=== PATIENT | female | born 2005 | race Caucasian/White ===

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

== ENCOUNTER 2025-05-03 14:20 | Emergency (ER) | payer OTHER, MEDICAID, SELFPAY ==
--- OUTSIDE RECORDS SUMMARY | 2025-05-02 23:37 | XMS_ITS | Encounter Summary ---
Author Organization [facility] Address [address] [place] [address] Care Team Providers Care Old Testament Professor Name Role Phone Christine Coello MD Primary Care Provider Reason for Visit * Reason Comments Vomiting 1 episode Fever Nausea Generalized Body Aches Encounter Details Date Type Department Care Team (Late st Contact Info) Description 05/02/2025 11:37 PM CDT - 05/03/2025 1:38 AM T Emergency [facility] Emergency Medicine [address] [place] [address] [address] [place] [id number] Stew Montilla MD [address] [place] [address] [place] [phone] Discharge Disposition: Home or Self Care Social History Tobacco Use Types Packs/Day Years Used Date Smoking Tobacco: Never Smokeless Tobacco: Never Alcohol Use Standard Drinks/Week Comments No 0 (1 standard drink = 0.6 oz pur e alcohol) Comments No Sex and Gender Information Value Date Recorded Sex Assigned at Not on file Legal Sex Female 9:46 AM [employer] Gender Identity Not on file Sexual Orientation Not on file documented as of this encounter Last Filed Vital Signs Vital Sign Reading Time Taken Comments Blood Pressure 96/60 05/03/2025 1:30 AM CDT Pulse 78 05/03/2025 1:30 AM CDT Temperature 38 C (100.4 F) 05/02/2025 11:37 PM CDT Respiratory Rate 18 05/03/2025 1:30 AM CDT Oxygen Saturation 97% 05/03/2025 1:30 AM CDT Inhaled Oxygen Concentration - - Weight 83 kg (183 lb) 05/02/2025 11:37 PM CDT Height 172.7 cm (5' 8 ) 05/02/2025 11:37 PM CDT Body Mass Index 27.83 05/02/2025 11:37 PM CDT documented in this encounter Discharge Instructions * Attachments The following attachments cannot be sent through Care Everywhere. * Viral Infections (Slovak) documented in this encounter Medications at Time of Discharge vits15/iron/folic/ dss ( VIT [id number]-[id number] ORAL) Take by mouth. aspirin (LIZA CHEWABLE) 81 mg Tablet, Chewable Take 81 mg by mouth daily. documented as of this encounter Plan of Treatment Pending Results Name Type Priority Associated Diagnoses Date /Time BLOOD CULTURE Microbiology Stat 12:15 AM CDT BLOOD CULTURE Microbiology Stat 12:28 AM CDT BLOOD CULTURE Microbiology Stat 12:15 AM CDT BLOOD CULTURE Microbiology Stat 12:28 AM CDT Scheduled Orders Name Type Priority Associated Diagnoses Orde r Schedule BLOOD CULTURE Microbiology Routine ONE TIME for 1 Occurrences starting 05/02/2025 until 05/02/2025 BLOOD CULTURE Microbiology Routine ONE TIME for 1 Occurrences starting 05/02/2025 until 05/02/2025 BLOOD CULTURE Microbiology Stat Once for 1 Occurrences starting 05/02/2025 until 05/02/2025 BLOOD CULTURE Microbiology Stat Once for 1 Occurrences starting 05/02/2025 until 05/02/2025 documented as of this encounter Procedures Procedure Name Priority Date/Time Associated Diagnosis Comments XR CHEST PA OR AP 1 VW Stat 12:18 AM CDT COVID-19 ANTIGEN Stat 05/03/2025 12:1 5 AM CDT LACTIC ACID Stat 05/03/2025 12:15 AM CDT CBC WITH DIFFERENTIAL Stat 05/03/2025 12:15 AM CDT URINALYSIS W/REFLEX MICROSCOPIC Stat 05/03/2025 12:15 AM CDT HCG QUALITATIVE, URINE Stat 12:15 AM CDT COMPREHENSIVE METABOLIC PANEL Stat 05/03/2025 12:15 AM CDT documented in this encounter Results * XR CHEST PA OR AP 1 VW (05/03/2025 12:18 AM CDT) Anatomical Region Laterality Modality Chest Computed Radiogr aphy 05/03/2025 12:1 8 AM CDT Impressions 05/03/2025 12:35 AM CDT IMPRESSION: No acute cardiopulmonary abnormality identified. MACRO: None Narrative 05/03/2025 12:35 AM CDT EXAMINATION: XR CHEST PA OR AP 1 VW CLINICAL HISTORY: ASSOCIATED DIAGNOSIS: Fever ORDERING PROVIDER: STEW FITZGERALD NOTE: COMPARISON: None FINDINGS: Lines, tubes, and devices: None. Lungs and pleura: No focal pulmonary consolidation, effusion or pneumothorax. Cardiomediastinal silhouette: Normal cardiomediastinal silhouette. Musculoskeletal: Unremarkable. Procedure Note Stu Hernandes MD - 05/03/2025 EXAMINATION: XR CHEST PA OR AP 1 VW CLINICAL HISTORY: ASSOCIATED DIAGNOSIS: Fever ORDERING PROVIDER: STEW FITZGERALD NOTE: COMPARISON: None FINDINGS: Lines, tubes, and devices: None. Lungs and pleura: No focal pulmonary consolidation, effusion or pneumothorax. Cardiomediastinal silhouette: Normal cardiomediastinal silhouette. Musculoskeletal: Unremarkable. IMPRESSION: No acute cardiopulmonary abnormality identified. MACRO: None Stew Montilla MD DIAGNOSTIC IMAGING ORDER [facility] Final Result * COVID-19 ANTIGEN (05/03/2025 12:15 AM CDT) COVID-19 ANTIGEN Presumptive Negative Presumptive Negative 05/03/2025 2:18 AM CDT [facility] Upper Respiratory ANTERIOR NARES SWAB / Unknown Collection / Unknown 05/03/2025 12:15 AM CDT 05/03/2025 2:15 AM CDT Narrative [facility] - 05/03/2025 2:18 AM CDT Kristy SARS antigen test has been authorized by FDA under an emergency use authorization (EUA) and has been authorized only for the detection of proteins from SARS-CoV-2 and influenza, not for any other viruses or pathogens. Kristy SARS Antigen CHELI is intended for the simultaneous qualitative detection and differentiation of nucleocapsid protein antigen from SARS-CoV-2 directly from nasopharyngeal (INSIDE STEWARD/STEWARDESS) and nasal (NS) swab specimens collected from individuals who are suspected of respiratory viral infection consistent with COVID-19 by their healthcare provider within the first five (5) days of symptom onset when tested at least twice over three days with at least 48 hours between tests, or from individuals without symptoms or other epidemiological reasons to suspect COVID-19 when tested at least three times over five days with at least 48 hours between tests. This test is only authorized for the duration of the declaration that circumstances exist justifying the authorization of emergency use of in vitro diagnostics for detection and/or diagnosis of the virus that causes COVID-19 under Section 564(b)(1) of the Act, 21 U.S.C. 360bbb-3(b)(1), unless the authorization is terminated or revoked sooner. Negative results should be treated as presumptive and confirmed with a molecular assay, if necessary for patient care. Serial testing should be performed in individuals with negative results at least twice over three days (with 48 hours between tests) for symptomatic individuals or from individuals without symptoms or other epidemiological reasons to suspect COVID-19 when tested at least three times over five days with at least 48 hours between tests. us Stew Montilla MD MICROBIOLOGY - GENERAL O RDERABLES Final Result [facility] CLIA # [id number] [address] [place] [id number] * HCG QUALITATIVE, URINE (05/03/2025 12:15 AM CDT) HCG QUAL URINE Negative Negative 05/03/2025 2:18 AM CDT [facility] COLOR UA Yellow Pale to Dark Yellow 05/03/2025 2:18 AM CDT [facility] CLARITY UA Clear Clear 05/03/2025 2:18 AM CDT [facility] Urine URINE SPECIMEN OBTAINED BY CLEAN CATCH PROCEDURE / Unknown Collection / Unknown 05/03/2025 12:15 AM CDT 05/03/2025 2:15 AM CDT us Stew Montilla MD URINE ORDERABLES Final R esult [facility] CLIA # [id number] [address] [place] [address] * URINALYSIS WITH REFLEX MICROSCOPIC (05/03/2025 12:15 AM CDT) COLOR UA Yellow Pale to Dark Yellow 05/03/2025 2:19 AM CDT [facility] CLARITY UA Clear Clear 05/03/2025 2:19 AM T [facility] SPECIFIC GRAVITY UA 1.025 1.003 - 1.035 05/03/2025 2:19 AM T [facility] PH UA 6.0 5.0 - 8.0 05/03/2025 2:19 AM T [facility] LEUKOCYTE ESTERASE UA Negative Negative 05/03/2025 2:19 AM T [facility] NITRITE UA Negative Negative 05/03/2025 2:19 AM T [facility] PROTEIN UA Negative Negative 05/03/2025 2:19 AM T [facility] GLUCOSE UA Negative Negative 05/03/2025 2:19 AM T [facility] KETONES UA Negative Negative 05/03/2025 2:19 AM T [facility] UROBILINOGEN UA 0.2 <2.0 mg/dL 2:19 AM T [facility] BILIRUBIN UA Negative Negative 05/03/2025 2:19 AM T [facility] BLOOD UA Negative Negative 05/03/2025 2:19 AM CDT [facility] Urine URINE SPECIMEN OBTAINED BY CLEAN CATCH PROCEDURE / Unknown Collection / Unknown 05/03/2025 12:15 AM CDT 05/03/2025 2:15 AM CDT Stew Montilla MD URINE ORDERABLES Final R esult [facility] CLIA # [id number] [address] [place] [phone] * LACTIC ACID (05/03/2025 12:15 AM CDT) LACTIC ACID 0.8 <=2.0 mmol/L 05/03/2025 2:18 AM CDT [facility] Blood BLOOD SPECIMEN / Unknown Collection / Unknown 05/03/2025 12:15 AM CDT 05/03/2025 2:15 AM CDT Stew Montilla MD CHEMISTRY ORDERABLES Fin al Result Performing Organization Address City/[facility]/ZIP Co de Phone Number [facility] CLIA # [id number] [address] [place] [phone] * COMPREHENSIVE METABOLIC PANEL (05/03/2025 12:15 AM CDT) SODIUM 139 136 - 145 mmol/L 05/03/2025 2:22 AM CDT [facility] POTASSIUM 3.7 3.5 - 5.1 mmol/L 05/03/2025 2:22 AM T [facility] CHLORIDE 104 98 - 107 mmol/L 05/03/2025 2:22 AM T [facility] CO2 22 22 - 29 mmol/L 05/03/2025 2:22 AM T [facility] CALCIUM 9.3 8.6 - 10.0 mg/dL 05/03/2025 2:22 AM T [facility] BUN 18 6 - 20 mg/dL 05/03/2025 2:22 AM [facility] CREATININE 0.80 0.51 - 0.95 mg/dL 05/03/2025 2:22 AM [facility] GLUCOSE 93 74 - 99 mg/dL 05/03/2025 2:22 AM [facility] TOTAL PROTEIN 7.1 6.6 - 8.7 g/dL 05/03/2025 2:22 AM [facility] ALBUMIN 4.4 3.5 - 5.2 g/dL 05/03/2025 2:22 AM [facility] BILIRUBIN TOTAL 0.2 0.0 - 1.2 mg/dL 05/03/2025 2:22 AM [facility] ALKALINE PHOSPHATASE 100 35 - 104 U/L 05/03/2025 2:22 AM [facility] AST 21 0 - 35 U/L 05/03/2025 2:22 AM [facility] ALT 11 0 - 35 U/L 05/03/2025 2:22 AM [facility] GFR >60 >=60 mL/min/1.7 3 sq meter 05/03/2025 2:22 AM [facility] Comment:eGFR calculated with 2020 CKD-EPI equation. Vegetarian diet, extremely high or low muscle mass, and may affect results. Cystatin C with Glomerular Filtration Rate is a suitable alternative for these patients. ANION GAP 13 5 - 20 mmol/L 05/03/2025 2:22 AM [facility] Blood Collection / Unknown 05/03/2025 12:15 AM CDT 05/03/2025 2:15 AM CDT us Stew Montilla MD CHEMISTRY ORDERABLES Fin al Result [facility] CLIA # [id number] [address] [place] [address] [phone] * (ABNORMAL) CBC WITH DIFFERENTIAL (05/03/2025 12:15 AM CDT) WBC 5.7 4.0 - 10.0 K/uL 05/03/2025 2:17 AM [facility] RBC 4.65 3.93 - 5.22 M/uL 05/03/2025 2:17 AM [facility] HEMOGLOBIN 13.1 11.2 - 15.7 g/dL 05/03/2025 2:17 AM [facility] HEMATOCRIT 38.9 34.1 - 44.9 % 05/03/2025 2:17 AM [facility] MCV 83.7 79.4 - 94.8 fL 05/03/2025 2:17 AM [facility] MCH 28.2 25.6 - 32.2 pg 05/03/2025 2:17 AM [facility] MCHC 33.7 32.2 - 35.5 g/dL 05/03/2025 2:17 AM [facility] RDW 13.4 11.0 - 14.5 % 05/03/2025 2:17 AM [facility] RDW-STDEV 40.2 36.9 - 56.9 fL 05/03/2025 2:17 AM [facility] PLATELETS 188 163 - 337 K/uL 05/03/2025 2:17 AM [facility] MPV 10.6 10.0 - 14.8 fL 05/03/2025 2:17 AM [facility] NEUTROPHILS 78(H) 34 - 71 % 05/03/2025 2:17 AM [facility] LYMPHOCYTES 11(L) 19 - 52 % 05/03/2025 2:17 AM [facility] MONOCYTES 8 5 - 13 % 05/03/2025 2:17 AM [facility] EOSINOPHILS 2 1 - 6 % 05/03/2025 2:17 AM [facility] BASOPHILS 1 0 - 1 % 05/03/2025 2:17 AM [facility] IMMATURE GRANULOCYTES 0 % 05/03/2025 2:17 AM [facility] NEUTROPHIL ABSOLUTE 4.44 1.56 - 6.13 K/uL 05/03/2025 2:17 AM CDT [facility] LYMPHOCYTE ABSOLUTE 0.64(L) 1.20 - 3.40 K/uL 05/03/2025 2:17 AM CDT [facility] MONOCYTE ABSOLUTE 0.45(H) 0.24 - 0.36 K/uL 05/03/2025 2:17 AM CDT [facility] EOSINOPHIL ABSOLUTE 0.09 0.04 - 0.36 K/uL 05/03/2025 2:17 AM CDT [facility] BASOPHILS ABSOLUTE 0.03 0.01 - 0.08 K/uL 05/03/2025 2:17 AM [facility] IMMATURE GRANULOCYTES ABSOLUTE 0.01 K/uL 05/03/2025 2:17 AM [facility] Blood Collection / Unknown 05/03/2025 12:15 AM CDT 05/03/2025 2:15 AM CDT Stew Montilla MD HEMATOLOGY ORDERABLES Fi nal Result [id number] [address] [place] [phone] documented in this encounter Visit Diagnoses Not on filedocumented in this encounter Administered Medications Inactive Administered Medications - up to 3 most recent administrations Medication Order MAR Action Action Date Dose Rate Site acetaminophen (TYLENOL) tablet 1,000 mg 1,000 mg, Oral, ONE TIME ONLY, 1 dose, On Thu05/03/25 at 0000, Routine Given 05/03/2025 12:07 AM CDT 1,000 mg ondansetron (ZOFRAN) 4 mg/2 mL injection 4 mg 4 mg, IV, ONE TIME ONLY, 1 dose, On Thu05/03/25 at 0000, Stat Given 05/03/2025 12:10 AM CDT 4 mg sodium chloride 0.9 % bolus solution 1,000 mL 1,000 mL, IV, ONE TIME ONLY, 1 dose, On Thu05/03/25 at 0000, at 2,000 mL/hr, Administer over 30 Minutes, Routine New Bag 05/03/2025 12:28 AM CDT 1,000 mL 2000 mL/hr documented in this encounter Active and Recently Administered Medications Times are shown in CDT. Scheduled Medication Order 05/01/2025 05/02/2025 05/03/2025 acetaminophen (TYLENOL) tablet 1,000 mg (COMPLETED) 1,000 mg, Oral, ONE TIME ONLY, 1 dose, On Thu05/03/25 at 0000, Routine 0007 (Given - Provid er: Ciera Candelario RN) ondansetron (ZOFRAN) 4 mg/2 mL injection 4 mg (COMPLETED) 4 mg, IV, ONE TIME ONLY, 1 dose, On Thu05/03/25 at 0000, Stat 0010 (Given - Provid er: Ciera Candelario RN) sodium chloride 0.9 % bolus solution 1,000 mL (COMPLETED) 1,000 mL, IV, ONE TIME ONLY, 1 dose, On Thu05/03/25 at 0000, at 2,000 mL/hr, Administer over 30 Minutes, Routine 0028 (New Bag - Prov ider: Ciera Candelario RN)0058 (Stopped - Provider: Ciera Candelario RN) documented in this encounter Additional Health Concerns Infection Onset Date Last Indicated Resolved Time R/O COVID-19 05/02/2025 05/03/2025 05/03/2025 2:18 AM CDT documented as of this encounter Care Teams Old Testament Professor Relationship Specialty Start Date End Date Christine Coello MD [address] [phone] PCP - General Family Practice 01/04/24 documented as of this encounter
--- OUTSIDE RECORDS SUMMARY | 2025-05-03 14:30 | XMS_ITS | Clinical Summary ---
Author Organization [facility] Address [address] [place] [address] Care Team Providers Care Buckram Sewer Name Role Phone Christine Coello MD Primary Care Provider Allergies No known active allergies Medications vits15/iron/foli c/dss ( VIT 54-TUPF-USNSO-DS S ORAL) Take by mouth. Active aspirin (LIZA CHEWABLE) 81 mg Tablet, Chewable Take 81 mg by mouth daily. Active Active Problems Problem Noted Date Diagnosed Date Acute pain of right knee 04/14/2017 Encounters Date Type Department Care Team Description 05/02/2025 11:37 PM CDT - 05/03/2025 1:38 AM T Emergency [facility] Emergency Medicine [address] [place] [id number] Stew Montilla MD Discharge Disposition: Home or Self Care 05/02/2025 Travel from Last 3 Months Immunizations Immunization Administration Dates Next Due (ACTHIB/HIBERIX)(2 MOS-5 YRS /6 WKS-4 YRS) HAEMOPHILUS INFLUENZAE TYPE B VACCINE (HIB), PRP-T CONJUGATE, 4 DOSE, 0.5 ML IM 10/28/2006,02/17/2006,2005 (ADACEL/BOOSTRIX)(10 YR UP) TDAP VACCINE, 0.5ML, IM 05/11/2019 (HAVRIX/VAQTA)(12 MO-18 YRS) HEPATITIS A VACCINE 0.5 ML PED/ADOL 2 DOSE, IM 09/10/2009,03/22/2008 (INFANRIX)(6 WKS-6 YRS) DIPT HERIA, TETANUS TOXOIDS, AND ACCELLULAR PERTUSSIS VACCINE (DTAP), 0.5 ML IM 02/10/2007,04/27/2006,02/18/2006,12/15 (IPOL)(6 WKS AND UP) POLIOVI BOGADN VACCINE, INACTIVATED (IPV), 3 DOSE, SUBCUT OR IM 04/27/2006,02/18/2006,2005 (KINRIX/QUADRACEL)(4 - 6 YRS ) DIPHTHERIA, TETANUS TOXOIDS AND ACELLULAR PERTUSSIS VACCINE, POLIO, INACTIVATED (DTAP-IPV) (PF) IM 07/12/2010 (M-M-R II/PRIORIX)(12 MO UP) MEASLES, MUMPS AND RUBELLA VIRUS VACCINE, 0.5 ML IM/SUBCUT 07/12/2010,10/28/2006 (MENACTRA)(9 MO-55 YR) MENIN GOCOCCAL POLYSACCHARIDE A, C, Y AND W-135 DIPTHERIA TOXOID CONJUGATE VACCINE, (PF), 0.5ML, IM 05/11/2019 (MENQUADFI)(2 YRS UP) MENING OCOCCAL POLYSACCHARIDE VACCINE A,C,Y,W-135, TT CONJUGATE (PF) 10 MCG/0.5 ML IM SOLUTION 08/12/2023 (PEDVAXHIB)(2 - 71 MOS) HIB PRP-OMP VACCINE, 3 DOSE, 0.5 ML IM0] 10/28/2006,02/18/2006,2005 (RECOMBIVAX HB/ENGERIX-B)(0- 19 YRS) HEPATITIS B VACCINE 5 MCG/0.5 ML OR 10 MCG/0.5 ML PED OR ADOL 3 DOSE (PF), IM 04/27/2006,2005,2005 (VARIVAX)(12 MOS UP)VARICELL A VIRUS VACCINE (PF) 0.5 ML, SUB CUT 07/12/2010,10/28/2006 Hepatitis A Vaccine 09/10/2009,03/22/2008 Hepatitis B Vaccine 04/27/2006,2005,2004 Hepatitis B and Haemophilus Influenzae Type B Vaccine (Hib-HepB)IM 02/18/2006 INFLUENZA VACCINE QUADRIVALE NT 6 MOS UP IM 08/11/2014 INFLUENZA VACCINE QUADRIVALE NT 6 MOS UP PF IM 08/18/2019,08/19/2018 Influenza Seasonal Unspecifi ed Formulation IM 08/05/2013,08/30/2008,10/28/2006,09/22 Influenza Seasonal Unspecifi ed Formulation PF IM 08/05/2013 Influenza Virus Vaccine, Spl it Virus (Incl. Purified Surface antigen)-retired CODE 08/30/2008 Pneumococcal 7-valent conjug ate vaccine IM 02/10/2007,04/27/2006,02/18/2006,12/15 Family History Medical History Relation Name Comments No Known Problems Father No Known Problems Mother Relation Name Status Comments Father Alive Mother Alive Social History Tobacco Use Types Packs/Day Years Used Date Smoking Tobacco: Never Smokeless Tobacco: Never Tobacco Cessation:Counseling Given: No Alcohol Use Standard Drinks/Week Comments No 0 (1 standard drink = 0.6 oz pur e alcohol) Comments No Sex and Gender Information Value Date Recorded Sex Assigned at Not on file 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 Gender Identity Not on file Sexual Orientation Not on file Last Filed Vital Signs Vital Sign Reading [...] Mass Index 27.83 05/02/2025 11:37 PM CDT Plan of Treatment Health Maintenance Due Date Last Done Comments CHLAMYDIA SCREENING (ANNUAL) 11-24 YEARS 2016 HPV VACCINES (1 - 3-dose series) 2020 Preventative Visit-Managed Medicaid 2024 08/12/2023, 06/16/2022, 05/11/2019 INFLUENZA VACCINE (#1) 2025 9, 08/19/2018, 08/11/2014, Additional history exists DTAP/TDAP/TD VACCINES (7 - T d or Tdap) 05/11/2029 05/11/2019, 07/12/2010, 02/10/2007, Additional history exists HEPATITIS B VACCINES Completed 04/27/2006, 04/27/2006, 02/18/2006, Additional history exists Procedures Procedure Name Priority Date/Time Associated Diagnosis Comments XR CHEST PA OR AP 1 VW Stat 12:18 AM CDT COVID-19 ANTIGEN Stat 05/03/2025 12:1 5 AM CDT HCG QUALITATIVE, URINE Stat 12:15 AM CDT URINALYSIS W/REFLEX MICROSCOPIC Stat 05/03/2025 12:15 AM CDT LACTIC ACID Stat 05/03/2025 12:15 AM CDT COMPREHENSIVE METABOLIC PANEL Stat 05/03/2025 12:15 AM CDT CBC WITH DIFFERENTIAL Stat 05/03/2025 12:15 AM CDT from Last 3 Months Results * XR CHEST PA OR AP 1 VW (05/03/2025 12:18 AM CDT) Anatomical Region Laterality Modality Chest Computed Radiogr aphy 05/03/2025 12:1 8 AM CDT Impressions 05/03/2025 12:35 AM CDT IMPRESSION: No acute cardiopulmonary abnormality identified. MACRO: None Narrative 05/03/2025 12:35 AM CDT EXAMINATION: XR CHEST PA OR AP 1 VW CLINICAL HISTORY: ASSOCIATED DIAGNOSIS: Fever ORDERING PROVIDER: STEW MONTILLA TECHNOLOGISTS NOTE: COMPARISON: None FINDINGS: Lines, tubes, and devices: None. Lungs and pleura: No focal pulmonary consolidation, effusion or pneumothorax. Cardiomediastinal silhouette: Normal cardiomediastinal silhouette. Musculoskeletal: Unremarkable. Procedure Note Stu Hernandes MD - 05/03/2025 EXAMINATION: XR CHEST PA OR AP 1 VW CLINICAL HISTORY: ASSOCIATED DIAGNOSIS: Fever ORDERING PROVIDER: STEW MONTILLA TECHNOLOGISTS NOTE: COMPARISON: None FINDINGS: Lines, tubes, and devices: None. Lungs and pleura: No focal pulmonary consolidation, effusion or pneumothorax. Cardiomediastinal silhouette: Normal cardiomediastinal silhouette. Musculoskeletal: Unremarkable. IMPRESSION: No acute cardiopulmonary abnormality identified. MACRO: None us Stew Montilla MD DIAGNOSTIC IMAGING ORDER [facility] Final Result * COVID-19 ANTIGEN (05/03/2025 12:15 AM CDT) [facility] COVID-19 ANTIGEN Presumptive Negative Presumptive Negative 05/03/2025 2:18 AM CDT [facility] Upper Respiratory ANTERIOR NARES SWAB / Unknown Collection / Unknown 05/03/2025 12:15 AM CDT 05/03/2025 2:15 AM CDT [facility] - 05/03/2025 2:18 AM CDT Kristy SARS antigen test has been authorized by FDA under an emergency use authorization (EUA) and has been authorized only for the detection of proteins from SARS-CoV-2 and influenza, not for any other viruses or pathogens. Kristy SARS Antigen CHELI is intended for the simultaneous qualitative detection and differentiation of nucleocapsid protein antigen from SARS-CoV-2 directly from nasopharyngeal (PROCED TECH) and nasal (NS) swab specimens collected from [...] with at least 48 hours between tests. Stew Montilla MD MICROBIOLOGY - GENERAL O RDERABLES Final Result Performing Organization Address [facility]/ZIP Co de Phone Number [facility] [id number] [address] [place] [phone] * LACTIC ACID (05/03/2025 12:15 AM CDT) LACTIC ACID 0.8 <=2.0 mmol/L 05/03/2025 2:18 AM CDT [facility] Blood BLOOD SPECIMEN / Unknown Collection / Unknown 05/03/2025 12:15 AM CDT 05/03/2025 2:15 AM CDT tSew Montilla MD CHEMISTRY ORDERABLES Fin al Result Performing Organization Address [facility]/ZIP Co de Phone Number [facility] CLIA # [id number] [address] [place] [phone] * (ABNORMAL) CBC WITH DIFFERENTIAL (05/03/2025 12:15 AM CDT) WBC 5.7 4.0 - 10.0 K/uL 05/03/2025 2:17 AM CDT [facility] RBC 4.65 3.93 - 5.22 M/uL 05/03/2025 2:17 AM CDT [facility] HEMOGLOBIN 13.1 11.2 - 15.7 g/dL 05/03/2025 2:17 AM [facility] HEMATOCRIT 38.9 34.1 - 44.9 % 05/03/2025 2:17 AM [facility] MCV 83.7 79.4 - 94.8 fL 05/03/2025 2:17 AM [facility] MCH 28.2 25.6 - 32.2 pg 05/03/2025 2:17 AM [facility] MCHC 33.7 32.2 - 35.5 g/dL 05/03/2025 2:17 AM [facility] RDW 13.4 11.0 - 14.5 % 05/03/2025 2:17 AM [facility] RDW-STDEV 40.2 36.9 - 56.9 fL 05/03/2025 2:17 AM [facility] PLATELETS 188 163 - 337 K/uL 05/03/2025 2:17 AM [facility] MPV 10.6 10.0 - 14.8 fL 05/03/2025 2:17 AM [facility] NEUTROPHILS 78(H) 34 - 71 % 05/03/2025 2:17 AM [facility] LYMPHOCYTES 11(L) 19 - 52 % 05/03/2025 2:17 AM [facility] MONOCYTES 8 5 - 13 % 05/03/2025 2:17 AM [facility] EOSINOPHILS 2 1 - 6 % 05/03/2025 2:17 AM [facility] BASOPHILS 1 0 - 1 % 05/03/2025 2:17 AM [facility] IMMATURE GRANULOCYTES 0 % 05/03/2025 2:17 AM [facility] NEUTROPHIL ABSOLUTE 4.44 1.56 - 6.13 K/uL 05/03/2025 2:17 AM [facility] LYMPHOCYTE ABSOLUTE 0.64(L) 1.20 - 3.40 K/uL 05/03/2025 2:17 AM [facility] MONOCYTE ABSOLUTE 0.45(H) 0.24 - 0.36 K/uL 05/03/2025 2:17 AM CDT [facility] EOSINOPHIL ABSOLUTE 0.09 0.04 - 0.36 K/uL 05/03/2025 2:17 AM CDT [facility] BASOPHILS ABSOLUTE 0.03 0.01 - 0.08 K/uL 05/03/2025 2:17 AM T [facility] IMMATURE GRANULOCYTES ABSOLUTE 0.01 K/uL 05/03/2025 2:17 AM T [facility] Blood Collection / Unknown 05/03/2025 12:15 AM CDT 05/03/2025 2:15 AM CDT us Stew Montilla MD HEMATOLOGY ORDERABLES Fi nal Result [facility] CLIA # [id number] [address] [place] [phone] * URINALYSIS WITH REFLEX MICROSCOPIC (05/03/2025 12:15 AM CDT) COLOR UA Yellow Pale to Dark Yellow 05/03/2025 2:19 AM [facility] CLARITY UA Clear Clear 05/03/2025 2:19 AM [facility] SPECIFIC GRAVITY UA 1.025 1.003 - 1.035 05/03/2025 2:19 AM [facility] PH UA 6.0 5.0 - 8.0 05/03/2025 2:19 AM [facility] LEUKOCYTE ESTERASE UA Negative Negative 05/03/2025 2:19 AM T [facility] NITRITE UA Negative Negative 05/03/2025 2:19 AM [facility] PROTEIN UA Negative Negative 05/03/2025 2:19 AM [facility] GLUCOSE UA Negative Negative 05/03/2025 2:19 AM [facility] KETONES UA Negative Negative 05/03/2025 2:19 AM [facility] UROBILINOGEN UA 0.2 <2.0 mg/dL 2:19 AM [facility] BILIRUBIN UA Negative Negative 05/03/2025 2:19 AM CDT [facility] BLOOD UA Negative Negative 05/03/2025 2:19 AM CDT [facility] Urine URINE SPECIMEN OBTAINED BY CLEAN CATCH PROCEDURE / Unknown Collection / Unknown 05/03/2025 12:15 AM CDT 05/03/2025 2:15 AM CDT Stew Montilla MD URINE ORDERABLES Final R esult Performing Organization Address City/[facility] Co de Phone Number [facility] CLIA # [id number] [address] [place] [phone] * HCG QUALITATIVE, URINE (05/03/2025 12:15 AM CDT) HCG QUAL URINE Negative Negative 05/03/2025 2:18 AM CDT [facility] COLOR UA Yellow Pale to Dark Yellow 05/03/2025 2:18 AM CDT [facility] CLARITY UA Clear Clear 05/03/2025 2:18 AM CDT [facility] Urine URINE SPECIMEN OBTAINED BY CLEAN CATCH PROCEDURE / Unknown Collection / Unknown 05/03/2025 12:15 AM CDT 05/03/2025 2:15 AM CDT Stew Montilla MD URINE ORDERABLES Final R esult Performing Organization Address City/[facility]/ZIP Co de Phone Number [facility] CLIA # [id number] [address] [place] [phone] * COMPREHENSIVE METABOLIC PANEL (05/03/2025 12:15 AM CDT) SODIUM 139 136 - 145 mmol/L 05/03/2025 2:22 AM CDT [facility] POTASSIUM 3.7 3.5 - 5.1 mmol/L 05/03/2025 2:22 AM CDT [facility] CHLORIDE 104 98 - 107 mmol/L 05/03/2025 [facility] 22 22 - 29 mmol/L 05/03/2025 2:22 AM [facility] CALCIUM 9.3 8.6 - 10.0 mg/dL 05/03/2025 2:22 AM [facility] BUN 18 6 - 20 mg/dL 05/03/2025 2:22 AM [facility] CREATININE 0.80 0.51 - 0.95 mg/dL 05/03/2025 2:22 AM [facility] GLUCOSE 93 74 - 99 mg/dL 05/03/2025 2:22 AM [facility] TOTAL PROTEIN 7.1 6.6 - 8.7 g/dL 05/03/2025 2:22 AM [facility] ALBUMIN 4.4 3.5 - 5.2 g/dL 05/03/2025 2:22 AM [facility] BILIRUBIN TOTAL 0.2 0.0 - 1.2 mg/dL 05/03/2025 2:22 AM [facility] ALKALINE PHOSPHATASE 100 35 - 104 U/L 05/03/2025 2:22 AM [facility] AST 21 0 - 35 U/L 05/03/2025 2:22 AM [facility] ALT 11 0 - 35 U/L 05/03/2025 2:22 AM [facility] GFR >60 >=60 mL/min/1.7 3 sq meter 05/03/2025 2:22 AM [facility] Comment:eGFR calculated with 2020 CKD-EPI equation. Vegetarian diet, extremely high or low muscle mass, and may affect results. Cystatin C with Glomerular Filtration Rate is a suitable alternative for these patients. ANION GAP 13 5 - 20 mmol/L 05/03/2025 2:22 AM [facility] Blood Collection / Unknown 05/03/2025 12:15 AM CDT 05/03/2025 2:15 AM CDT us Stew Montilla MD CHEMISTRY ORDERABLES Fin al Result [facility] CLIA # [id number] [address] [address] from Last 3 Months Insurance [employer] [place] MEDICAID [facility] Care Teams Buckram Sewer Relationship Specialty Start Date End Date Christine Coello MD [address] [address] PCP - General Family Practice 01/04/24
--- OUTSIDE RECORDS SUMMARY | 2025-05-03 14:30 | XMS_ITS | Encounter Summary ---
Author Organization [facility] Address [address] [place]: Epic Prelude ADT [place] [address] Care Team Providers Care Camp Guard Name Role Phone Christine Coello MD Primary Care Provider Encounter Details Date Type Department Care Team (Latest Contact Info) Description 05/02/2025 Travel Social History Tobacco Use Types Packs/Day Years Used Date Smoking Tobacco: Never Smokeless Tobacco: Never Alcohol Use Standard Drinks/Week Comments No 0 (1 standard drink = 0.6 oz pur e alcohol) Comments No Sex and Gender Information Value Date Recorded Sex Assigned at Not on file Legal Sex Female 9:[address]PORTER Gender Identity Not on file Sexual Orientation Not on file documented as of this encounter Plan of Treatment Not on file documented as of this encounter Visit Diagnoses Not on filedocumented in this encounter Additional Health Concerns Infection Onset Date Last Indicated Resolved Time R/O COVID-19 05/02/2025 05/03/2025 05/03/2025 2:18 AM CDT documented as of this encounter Care Teams Camp Guard Relationship Specialty Start Date End Date Christine Coello MD [address] [place] [id number] PCP - General Family Practice 01/04/24 documented as of this encounter
--- OUTSIDE RECORDS SUMMARY | 2025-05-03 14:30 | XMS_ITS | Encounter Summary ---
Author Organization [facility] Address [address] [place] [address] Care Team Providers Care Bond Trader Name Role Phone Juan Miguel Samuel MD Primary Care Provider Encounter Details Date Type Department Care Team (Latest Contact Info) Description 04/16/2006 Outpatient Historical [facility] [address] [address] Rosa Roman NP NO ADDRESS ON FILE Unspecified Otitis Media (Primary Dx); Teething Syndrome Social History Tobacco Use Types Packs/Day Years Used Date Smoking Tobacco: Never Assessed Comments Unknown Sex and Gender Information Value Date Recorded Sex Assigned at Not on file 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
--- OUTSIDE RECORDS SUMMARY | 2025-05-03 14:30 | XMS_ITS | Clinical Summary ---
Author Organization [facility] Address [address] [place] [address] Care Team Providers Care Binder Cutter Name Role Phone Juan Miguel Samuel MD Primary Care Provider [phone] Allergies No known active allergies Medications ibuprofen (MOTRIN) 600 mg tabletIndication s:Acute pain of right knee Take 1 Tablet (600 mg) by mouth every 6 hours as needed for Pain, Mild. 60 Tablet 3 04/14/2017 Active Active Problems Problem Noted Date Diagnosed Date Acute pain of right knee 04/14/2017 Immunizations Immunization Administration Dates Next Due (ACTHIB/HIBERIX)(2 MOS-5 YRS /6 WKS-4 YRS) HAEMOPHILUS INFLUENZAE TYPE B VACCINE (HIB), PRP-T CONJUGATE, 4 DOSE, 0.5 ML IM 10/28/2006,02/17/2006,2005 (ADACEL/BOOSTRIX)(10 YR UP) TDAP VACCINE, 0.5ML, IM 05/11/2019 (INFANRIX)(6 WKS-6 YRS) DIPT HERIA, TETANUS TOXOIDS, AND ACCELLULAR PERTUSSIS VACCINE (DTAP), 0.5 ML IM 02/10/2007,04/27/2006,02/18/2006,12/15 (IPOL)(6 WKS AND UP) POLIOVI BOGDAN VACCINE, INACTIVATED (IPV), 3 DOSE, SUBCUT OR IM 04/27/2006,02/18/2006,2005 (M-M-R II/PRIORIX)(12 MO UP) MEASLES, MUMPS AND RUBELLA VIRUS VACCINE, 0.5 ML IM/SUBCUT 10/28/2006 (MENACTRA)(9 MO-55 YR) MENIN GOCOCCAL POLYSACCHARIDE A, C, Y AND W-135 DIPTHERIA TOXOID CONJUGATE VACCINE, (PF), 0.5ML, IM 05/11/2019 (VARIVAX)(12 MOS UP)VARICELL A VIRUS VACCINE (PF) 0.5 ML, SUB CUT 10/28/2006 Hepatitis A Vaccine 09/10/2009,03/22/2008 Hepatitis B Vaccine 04/27/2006,2005,2004 Hepatitis B and Haemophilus Influenzae Type B Vaccine (Hib-HepB)IM 02/18/2006 Influenza Seasonal Unspecifi ed Formulation IM 08/05/2013,08/30/2008,10/28/2006,09/22 Family History Medical History Relation Name Comments [...] on file 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 Gender Identity Not on file Sexual Orientation Not on file Last Filed Vital Signs Vital Sign Reading Time Taken Comments Blood Pressure 101/70 03/05/2021 1:15 AM CDT Pulse 54 03/05/2021 12:58 AM CDT Temperature 36.4 C (97.6 F) 03/04/2021 10:57 PM CDT Respiratory Rate 16 03/05/2021 1:15 AM CDT Oxygen Saturation 98% 03/05/2021 1:15 AM CDT Inhaled Oxygen Concentration - - Weight 63.1 kg (139 lb 1.8 oz) 03/04/20 10:57 PM CDT Height 175 cm (5' 8.9 ) 03/04/2021 10:5 7 PM CDT Body Mass Index 20.6 03/04/2021 10:57 PM CDT Body Mass Index Percentile 55.99% 03/04 10:57 PM CDT Growth Chart: CDC (Girls, 2- 20 Years) Plan of Treatment Health Maintenance Due Date Last Done Comments CHLAMYDIA SCREENING (ANNUAL) 11-24 YEARS 2016 HPV VACCINES (1 - 3-dose series) 2020 INFLUENZA VACCINE (#1) 2025 4, 08/05/2013, 08/05/2013, Additional history exists DTAP/TDAP/TD VACCINES (7 - T d or Tdap) 05/11/2029 05/11/2019, 07/12/2010, 02/10/2007, Additional history exists HEPATITIS B VACCINES Completed 04/27/2006, 04/27/2006, 02/18/2006, Additional history exists [place] [address] Care Teams Binder Cutter Relationship Specialty Start Date End Date Juna Miguel Samuel MD [address] [facility] [address] [place] [address] PCP - General Family Practice 09/21/19
[2025-05-03 14:37] VITALS: BP 98/66; PULSE 84; RESP 18; TEMP 36.7; O2SAT 98; BMI 27.8
--- NOTE | 2025-05-03 14:55 | XRR_ITS ---
PROCEDURE INFORMATION: Exam: XR Chest Exam date and time: 05/03/2025 2:57 PM Age: 19 years old Clinical indication: Fever TECHNIQUE: Imaging protocol: Radiologic exam of the chest. Views: 1 view. COMPARISON: No relevant prior studies available. FINDINGS: Lungs: Unremarkable. No consolidation. Pleural spaces: Unremarkable. No pleural effusion. No pneumothorax. Heart/Mediastinum: Unremarkable. No cardiomegaly. Bones/joints: Unremarkable. XR/XR chest 1V portable [id number] IMPRESSION: No acute findings.
[2025-05-03 15:58] LABS: Hematocrit 39.8 % (36-47); Hemoglobin 13.20 g/dL (12.4-14.8); Mean Corpuscular HGB Conc 33.2 g/dL (30-55); Mean Corpuscular Hemoglobin 28.8 pg (27-33); Mean Corpuscular Volume 86.7 fl (85-98); Nucleated Red Blood Cells % 0 %; Platelet Count 186 10^3/cmm (157-399); Red Blood Count 4.59 10^6/uL (3.85-5.65); White Blood Count 5.81 10^3/uL (4.5-13.0)
[2025-05-03 16:19] LABS: Alanine Aminotransferase 10 U/L (0-33); Albumin Level 4.1 g/dL (3.5-5.2); Alkaline Phosphatase 94 U/L (35-105); Anion Gap 15.8 (5-19); Aspartate Amino Transferase 16 U/L (0-32); Blood Urea Nitrogen 9 mg/dL (6-20); Calcium 8.7 mg/dL (8.5-10.5); Carbon Dioxide 22 mmol/L (22-29); Chloride 104 mmol/L (98-107); Creatinine Clr Calc Pharmacy 145.9956; Globulin 2.5 g/dL (1.3-4.6); Glucose 82 mg/dL (65-115); HCG, Serum Qual Negative (Negative); Osmolality Calculated 284 mOsm/kg (285-295); Potassium 3.8 mmol/L (3.5-5.1); Sodium 138 mmol/L (136-145); Total Protein 6.6 g/dL (6.6-8.7)
[2025-05-03 16:45] VITALS: BP 105/66; PULSE 82; O2SAT 98
[2025-05-03 17:00] VITALS: BP 105/70; PULSE 85; O2SAT 97
[2025-05-03 17:12] LABS: Glucose Urine UA Negative (Normal); Nitrate Urine Negative (Negative); Specific Gravity, Urine 1.016 (1.005-1.030)
[2025-05-03 17:17] LABS: Add Urine Microscopic? YES
--- NOTE | 2025-05-03 17:42 | USR_ITS ---
PROCEDURE INFORMATION: Exam: US Pelvis, Complete, Non-Obstetric Exam date and time: 05/03/2025 5:59 PM Age: 19 years old Clinical indication: Pelvic pain TECHNIQUE: Imaging protocol: Transabdominal pelvic nonobstetric ultrasound. Complete exam. Real time ultrasound with image documentation. COMPARISON: No relevant prior studies available. FINDINGS: Uterus: Endometrial echo complex measures 6 mm in thickness and demonstrates a trilaminar structure. Uterus is normal in overall size and is slightly retroflexed. Right ovary/adnexa: Physiologic appearance of the right ovary measuring 1.9 x 2.0 x 1.6 cm for a volume of approximately 3 cc. Color Doppler flow imaging and spectral analysis confirm appropriate arterial and venous waveforms. Left ovary/adnexa: Physiologic appearance of the left ovary measuring 2.7 x 1.8 x 3.0 cm for a volume 8 cc. Several left ovarian follicles are noted, largest of which measures 1.4 cm in diameter. Color Doppler flow imaging and spectral analysis confirm appropriate arterial and venous waveforms. Intraperitoneal space: No intraperitoneal fluid. Urinary bladder: Normal. US/US pelvic complete* [id number] IMPRESSION: Normal exam. Physiologic appearance of the uterus and ovaries.
[2025-05-03 17:44] LABS: Lactic Sepsis W/Reflex 0.5 mmol/L (0.5-2.2)
[2025-05-03 18:00] VITALS: BP 106/70; PULSE 52; O2SAT 98
[2025-05-03 20:00] VITALS: PULSE 85; O2SAT 97
--- NOTE | 2025-05-03 20:31 | ED_ITS ---
HPI - Fever 2 General: Chief Complaint: Fever Stated Complaint: high fevers Time Seen by Provider: 05/03/25 17:03 History of Present Illness: 19-year-old female patient presents to [facility] emergency department stating that she was seen in [place] home yesterday with fever and was told that she has a viral illness however fever continues and patient states she is not feeling any better patient states she has bodyaches all over feels fatiguedand continues to have a fever patient denies chest pain or shortness of breath. Patient denies any abdominal pain. Patient denies nausea vomiting Related Data Previous Rx's ?Medication ?Instructions ?Recorded nitrofurantoin 100 mg PO BID 5 days #10 cap s 05/03/25 monohydrate/macrocrystals 100 mg capsule (Macrobid) Allergies Allergy/AdvReac Type Severity Reaction Status Date / Time No Known Allergies Allergy Verified 05/03/25 14:42 Review of Systems 2 General: Reports: 10 or more systems reviewed and unremarkable except in HPI and below Physical Exam 2 Const: COMMON NORMALS: no acute distress, average body habitus, patient oriented x3, no limitations and healthy appearing Lymph: LYMPHATIC: no lymphadenopathy noted Resp: COMMON NORMALS: normal respiratory effort, No retractions and clear to auscultation bilaterally AUSCULTATION: clear to auscultation bilaterally Cardio: COMMON NORMALS: regular rate and regular rhythm RATE: regular rate RHYTHM: regular rhythm GI: COMMON NORMALS: Normal to inspection, nondistended, normoactive bowel sounds present, Soft to palpation and non-tender PALPATION: Yes Soft to palpation Neuro: COMMON NORMALS: patient oriented x3 Course 2 Vital Signs: Vital signs: Vital Signs Temperature 98.1 F 05/03/25 14:37 Pulse Rate 85 05/03/25 20:00 Respiratory Rate 18 05/03/25 14:37 Blood Pressure 106/70 05/03/25 18:00 Pulse Oximetry 97 05/03/25 20:00 Oxygen Delivery Me thod Room Air 05/03/25 20:00 MDM - Fever Medical Decision Making Labs are reassuring VSS Pt afebrile here in ER Pt did not want IV fluids Pelvic US negative findings Based on urine I will treat with antibiotics Abd soft and nontender Pt well apearing non toxic and in no distress Pt to follow up with PCP for recheck Lab Data 05/03/25 15:52 05/03/25 15:52 Radiology Impressions Chest X-Ray 05/03/25 14:55 IMPRESSION: No acute findings. Pelvis Ultrasound 05/03/25 17:42 IMPRESSION: Normal exam. Physiologic appearance of the uterus and ovaries. Laboratory Results WBC 5.81 10^3/uL (4.5-13.0) 05/03/25 15:52 RBC 4.59 10^6/uL (3.85-5.65) 05/03/25 15:52 Hgb 13.20 g/dL (12.4-14.8) 05/03/25 15:52 Hct 39.8 % (36-47) 05/03/25 15:52 MCV 86.7 fl (85-98) 05/03/25 15:52 MCH 28.8 pg (27-33) 05/03/25 15:52 MCHC 33.2 g/dL (30-55) 05/03/25 15:52 RDW 13.2 % (12.1-15.1) 05/03/25 15:52 Plt Count 186 10^3/cmm (157-399) 05/03/25 15:52 MPV 9.8 fL (7.4-10.4) 05/03/25 15:52 Neut % (Auto) 56.7 % 05/03/25 15:52 Lymph % (Auto) 28.2 % 05/03/25 15:52 [place] % (Auto) 14.1 % 05/03/25 15:52 Eos % (Auto) 0.3 % 05/03/25 15:52 Baso % (Auto) 0.5 % 05/03/25 15:52 Neut # (Auto) 3.29 10^3/uL (1.8-8.0) 05/03/25 15:52 Lymph # (Auto) 1.6 10^3/uL (1.5-6.5) 05/03/25 15:52 [place] # (Auto) 0.8 10^3/uL (0.2-0.9) 05/03/25 15:52 Eos # (Auto) 0.0 10^3/uL (0.0-0.8) 05/03/25 15:52 Baso # (Auto) 0.0 10^3/uL (0.0-0.1) 05/03/25 15:52 Nucleated RBC % (auto) 0 % 05/03/25 15:52 Nucleated RBCs # 0.0 /100WBC 05/03/25 15:52 Sodium 138 mmol/L (136-145) 05/03/25 15:52 Potassium 3.8 mmol/L (3.5-5.1) 05/03/25 15:52 Chloride 104 mmol/L (98-107) 05/03/25 15:52 Carbon Dioxide 22 mmol/L (22-29) 05/03/25 15:52 Anion Gap 15.8 (5-19) 05/03/25 15:52 BUN 9 mg/dL (6-20) 05/03/25 15:52 Creatinine 0.7 mg/dL (0.5-0.9) 05/03/25 15:52 GFR Calculation 107.8 mL/min (90-130) 05/03/25 15:52 Glucose 82 mg/dL (65-115) 05/03/25 15:52 Calculated Osmolality 284 mOsm/kg (285-295) L 05/03/25 15:52 Lactic Acid 0.5 mmol/L (0.5-2.2) 05/03/25 15:52 Calcium 8.7 mg/dL (8.5-10.5) 05/03/25 15:52 Total Bilirubin 0.3 mg/dL (0.15-1.2) 05/03/25 15:52 AST 16 U/L (0-32) 05/03/25 15:52 ALT 10 U/L (0-33) 05/03/25 15:52 Alkaline Phosphatase 94 U/L (35-105) 05/03/25 15:52 Total Protein 6.6 g/dL (6.6-8.7) 05/03/25 15:52 Albumin 4.1 g/dL (3.5-5.2) 05/03/25 15:52 Globulin 2.5 g/dL (1.3-4.6) 05/03/25 15:52 HCG, Qual Negative (Negative) 05/03/25 15:52 Urine Color Yellow (Yellow) 05/03/25 16:37 Urine Appearance Cloudy (CLEAR) A 05/03/25 16:37 Urine pH 6.0 (5-7) 05/03/25 16:37 Ur Specific [place] 1.016 (1.005-1.030) 05/03/25 16:37 Urine Protein Negative (Negative) 05/03/25 16:37 Urine Glucose (UA) Negative (Normal) 05/03/25 16:37 Urine Ketones 1+ (Negative) H 05/03/25 16:37 Urine Blood Negative (Negative) 05/03/25 16:37 Urine Nitrate Negative (Negative) 05/03/25 16:37 Urine Bilirubin Negative (Negative) 05/03/25 16:37 Urine Urobilinogen 1.0 mg/dL (Negative) 05/03/25 16:37 Ur Leukocyte Esterase 2+ (Negative) A 05/03/25 16:37 Urine RBC 0-2 /hpf (0-2) 05/03/25 16:37 Urine WBC 11-20 /hpf (0-5) H 05/03/25 16:37 Ur Squamous Epith Cells 11-20 /hpf (0-5) H 05/03/25 16:37 Amorphous Sediment Not Reportable 05/03/25 16:37 Urine Bacteria 1+ /hpf (NONE) H 05/03/25 16:37 Hyaline Casts 3.30 /lpf 05/03/25 16:37 All radiology interpretation(s) finalized by discharge Discharge Plan Discharge Patient Disposition: Home Clinical Impression: UTI (urinary tract infection) Qualifiers: Urinary tract infection type: acute cystitis Hematuria presence: without hematuria Qualified Code(s): N30.00 - Acute cystitis without hematuria Condition: Stable Prescriptions: New nitrofurantoin monohyd/m-cryst [Macrobid] 100 mg capsule 100 mg PO BID 5 Days Qty: 10 0RF Rx Instructions: must administer with a meal/food Discharge Orders: Discharge ED (Routine); Ordered 05/03/25 Ordered By: Dora Pelletier Referrals: Juan Wallace FNP [Primary Care Provider, Family Practice] Patient Instructions: Opioid Safety, Pain Management, Patient Portal & Lindy Instructions, Urinary Tract Infection in Women (DC) Activity Restrictions/Additional Instructions: Take meds as prescribed Return to ER if You are urinating very little or not at all. You have a high fever with shaking chills. You have side or back pain that gets worse. : You have a fever. You do not feel better after 2 days of taking antibiotics. You have new symptoms, such as blood or pus in your urine. You are vomiting. You have questions or concerns about your condition or care. Print Language: Faroese Coding Level of Care Code ED Natural [employer] Faculty Member for Janki Major
[2025-05-03] MEDS: nitrofurantoin SR (BID) 100 mg Capsule PO (20:38)
[2025-05-03 20:55] VITALS: BP 94/56; PULSE 76; O2SAT 98
== END 2025-05-03 20:56 | disposition home or self-care (01) ==
PROVIDERS: Emergency Medicine; Emergency Provider Registered Nurse; PCP Nurse Practitioner Family
DX: N30.00 Acute cystitis without hematuria (principal)
CPT/HCPCS: 36415; 71045; 76856; 80053; 81001; 83605; 84703; 85025; 99284; J9999